=== PATIENT | male | born 1960 | race Caucasian/White ===

== ENCOUNTER 2017-05-13 10:37 | Emergency (ER) | payer OTHER ==
[~2017-05-13] VITALS: Ht 165.1 cm; Wt 70.3 kg
[2017-05-13 10:40] VITALS: BP 116/65
--- NOTE | 2017-05-13 10:51 | NUR ---
Pt taken to XRAY via wheelchair per tech.
--- NOTE | 2017-05-13 10:54 | NUR ---
Patient back from XRAY via wheelchair.
[2017-05-13 12:20] VITALS: BP 116/65
--- NOTE | 2017-05-13 12:20 | NUR ---
Patient discharged with v/s stable. Written and verbal after care instructions given and explained. Patient alert, oriented and verbalized understanding of instructions. Ambulatory with steady gait. All questions addressed prior to discharge. ID band removed. Patient advised to follow up with PMD. Rx of PROMETHAZINE DM given. Patient educated on indication of medication including possible reaction and side effects. Opportunity to ask questions provided and answered.
== END 2017-05-13 12:20 | disposition home or self-care (01) ==
LOC: MED 10:37
DX: J20.9 Acute bronchitis, unspecified (principal); I10 Essential (primary) hypertension; E78.00 Pure hypercholesterolemia, unspecified
CPT/HCPCS: 71010; 99283